=== PATIENT | female | born 1980 | race Caucasian/White ===

== ENCOUNTER 2020-08-19 17:04 | Emergency (ER) | payer OTHER ==
[2020-08-19 18:29] LABS: HEMOGLOBIN 14.1 gm/dl (12.3-15.3); RED BLOOD COUNT 4.6 M/UL (4.00-5.10); WHITE BLOOD COUNT 6.9 K/UL (4.5-11.0)
[2020-08-19 18:49] LABS: BUN/CREATININE RATIO 22 (0-10)
== END 2020-08-19 20:26 | disposition home or self-care (01) ==
LOC: ER1 17:04
PROVIDERS: Physician Assistant Medical
DX: R05 Cough (principal); R06.02 Shortness of breath; J45.909 Unspecified asthma, uncomplicated; Z20.822 Contact with and (suspected) exposure to COVID-19
CPT/HCPCS: 0240U; 71045; 80053; 85025; 99285